=== PATIENT | female | born 1960 | race Hispanic/Latino ===

== ENCOUNTER 2018-03-11 15:16 | Emergency (ER) | payer BC, SELFPAY ==
[2018-03-11 16:12] LABS: #Basophils 0.1 thou/uL (0.0-0.2); #Eosinphils 0.3 thou/uL (0.0-0.7); #Lymphocytes 1.9 thou/uL (1.20-3.40); #Monocytes 0.5 thou/uL (0.11-0.59); #Neutrophils 5.7 thou/uL (1.40-6.50); %Basophils 1.2 % (0.0-1.0); %Eosinophils 3.9 % (0.0-10.0); %Lymphocytes 22.2 % (21.0-51.0); %Monocytes 5.6 % (0.0-10.0); %Neutrophils 67.1 % (42.0-75.0); Hemoglobin 10.8 g/dL (12.0-16.0); Mean Corpuscular HGB CONC 33.4 g/dL (32.0-36.0); Mean Corpuscular Hemoglobin 29.4 pg (27.0-31.0); Mean Corpuscular Volume 87.9 fl (81.0-99.0); Mean Platelet Volume 7.3 fL (7.4-10.4); Platelet Count 437 thou/uL (130-400); RBC Distribution Width 13.5 % (11.5-14.5); Red Blood Cell (RBC) Count 3.69 mill/uL (4.20-5.40); White Blood Cell (WBC) Count 8.5 thou/uL (4.8-10.8)
[2018-03-11 16:29] LABS: Anion Gap 15 mmol/L (10-20); BUN (Urea Nitrogen) 19 mg/dL (9.8-20.1); Calc. Creatinine Clearance 0 mL/min (70-130); Carbon Dioxide 18 mmol/L (22-29); Chloride 110 mmol/L (98-107); Estimated GFR-MDRD 46; Glucose 198 mg/dL (70-105); Potassium 3.5 mmol/L (3.5-5.1); Sodium 139 mmol/L (136-145)
[2018-03-11] MEDS ORDERED: ISOVUE-370 76%-LOCM 1 ML ONE (16:44)
--- NOTE | 2018-03-11 18:18 | CT ---
NECK CT WITH IV CONTRAST 03/11/18 COMPARISON: None. HISTORY: Abscess, dental abnormalities. TECHNIQUE: Serial axial CT imaging at 2.5 mm intervals from the skull base through the lung apices without contr ast. Coronal and sagittal reformatted imaging obtained. FINDINGS: The visualized brain parenchyma appears grossly unremarkable. Imaged paranasal sinuses/mastoid air ce lls are unremarkable aside from a few scattered opacified left sided mastoid air cells. The retroantr al fat and parapharyngeal fat appears clear bilaterally. Submandibular glands and parotid glands appe ar grossly unremarkable bilaterally. The tonsillar pillars, epiglottis and pre-epiglottic fat, hyoid bone, thyroid cartilage, cricoid cart ilage, thyroid gland, and level of the glottis appear unremarkable. Imaged lung apices are unremarkab le. An enlarged lymph node is seen anterior to the left submandibular gland measuring 1.3 cm in short axi s dimension. There are multiple additional mildly enlarged level I lymph nodes bilaterally. There are numerous periapical lucencies involving multiple mandibular teeth, including bilateral post erior periapical abscess formation of mandibular teeth with cortical breakthrough anteriorly. This in cludes the second premolar in the left mandibular region, the mandibular right bicuspid and the right mandibular second molar. There are multiple dental caries involving multiple bilateral mandibular an d maxillary teeth. There are also two posterior right maxillary periapical abscesses and there is a p eriapical abscess involving the maxillary tooth on the right involving the lateral incisor. No draina ble soft tissue abscess is appreciated. Osseous structures demonstrate no worrisome lytic or blastic lesions. IMPRESSION: Numerous dental caries with bilateral mandibular and maxillary periapical abscess formation as above. Prominent nodes in the submandibular region are likely reactive in nature, associated with poor dent ition. POS: [facility]
== END 2018-03-11 18:23 | disposition home or self-care (01) ==
LOC: ERS 15:16
DX: K04.7 Periapical abscess without sinus (principal); K02.9 Dental caries, unspecified; G43.909 Migraine, unspecified, not intractable, without status migrainosus
CPT/HCPCS: 70491; 80048; 85025